=== PATIENT | male | born 1975 | race Caucasian/White ===

== ENCOUNTER 2020-03-02 08:30 | Outpatient (RCR) | payer BC, SELFPAY ==
--- NOTE | 2020-01-14 15:16 | PTOPEVAL ---
Thank you for referring Kaiden Amaya JrLata to [facility].? The patient is scheduled to be seen for therapy?2 x/week for 4 weeks. Please review, sign, date and return this plan of care RADHA. I agree with and certify that the following plan of care is medically necessary. Referring Physician Date Attending Provider: Guanako Akins MD Referring Provider: *PT Outpatient Evaluation Start: 01/14/20 13:57 Freq: Status: Active Protocol: Document 01/14/20 13:59 ROMY (Rec: 01/14/20 14:52 ROMY [email or web address]) Therapy Assessment Status Assessment Status Assessment Status Evaluation Outpatient Past Medical History Past Medical History No Past Medical/Surgical History Patient/Family Denies Significant Past Medical/ Surgical History Evaluation Information Problem Diagnosis right elbow pain Onset ~ 1 year Cause unknown Additional Evaluation Detail anti-inflammatory medication: no changes with use of medication. 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 Reports increased pain with lifting weights of 30-35#. He noted increased pain after spliting wood for a few hours. He reports intermittent numbness/tingling into right palm. Reports any activity that causes strain on the elbow increases the pain (ie lifting any object, holding kids). States pain is on the medial/ posterior aspect of elbow. Denies pain with sleeping. Denies pain with use of computer or phone. States something feels off with the elbow. He lifts weights 3x/wk, then runs or bikes. He performs minimal stretching. Pain Assessment Timing of Pain Assessment Timing of Pain Assessment Assessment Pain Scale Pain Scale Used Numeric (1 - 10) Self Report Pain Assessment Right Elbow(s) Reported Pain Level 1 Pain Description Numbness,Radiating,Sharp,
--- NOTE | 2020-02-11 12:29 | PTOPEVAL ---
Thank you for referring Kaiden Amaya JrLata to [facility].? The patient is scheduled to be seen for therapy? 2 x/week for 3 weeks. Please review, sign, date and return this plan of care RADHA. I agree with and certify that the following plan of care is medically necessary. Referring Physician Date Attending Provider: Guanako Akins MD *PT Outpatient Evaluation Start: 01/14/20 13:57 Freq: Status: Active Protocol: Document 02/11/20 09:02 ROMY (Rec: 02/11/20 10:00 ROMY [email or web address]) Therapy Assessment Status Assessment Status Assessment Status Re-evaluation Outpatient Past Medical History Past Medical History No Past Medical/Surgical History Patient/Family Denies Significant Past Medical/ Surgical History Evaluation Information Problem Diagnosis right elbow pain Onset ~ 1 year Cause unknown Additional Evaluation Detail anti-inflammatory medication: no changes with use of medication. 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 Subjective Information He will have right elbow and Query Text:As Reported By Patient/ arm pain with any activity Family that requires use of the right UE for pushing, pulling or lifting resistance. He reports intermittent numbness /tingling into right palm. He will have tingling in the wrist after some of his resistance activities. He has right elbow pain with throwing motion with increased force. Pain is isolated to medical epicondyle with the forceful throwing motion. Denies difficulty sleeping due to pain. Denies pain with use of computer or phone, leaning onto elbow. States pain is isolated to medial epicondyle elbow region to slightly superior to condyle region. States something feels off with the elbow. He has been lifts
--- NOTE | 2020-03-02 10:07 | PTOPEVAL ---
Thank you for referring Kaiden Amaya Jr. to [facility].? Pt has been seen for 14 therapy visits to address right UE symptoms and pain. Limited progress with symptoms, tolerance with activities and progression towards therapy goals with therapy. DC skilled therapy services at this time with goals partially met. Please review, sign, date and return this plan of care RADHA. I agree with and certify that the following plan of care is medically necessary. Referring Physician Date Admitting Provider: Attending Provider: Guanako Akins MD Referring Provider: *PT Outpatient Evaluation Start: 01/14/20 13:57 Freq: Status: Active Protocol: Document 03/02/20 08:34 CAP (Rec: 03/02/20 09:00 CAP [email or web address]) Therapy Assessment Status Assessment Status Assessment Status Re-evaluation/Discharge Note Evaluation Information Problem Diagnosis right elbow pain Onset ~ 1 year Cause unknown Additional Evaluation Detail anti-inflammatory medication: no changes with use of medication. 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 Subjective Information He cont to have pain for the Query Text:As Reported By Patient/ right elbow and arm with any Family activity that requires use of the right UE for pushing, pulling or lifting resistance. REports the symptoms stay in the medial elbow region with the resistance activites. He reports improved numbness/ tingling into right palm. He continues to have right elbow pain with throwing motion with increased force. Denies difficulty sleeping due to pain. Denies pain with use of computer or phone, leaning onto elbow or prolonged elbow flexion position. He cont to perform cardio activities without restrictions. He is performing his HEP without changes in symptoms. Pain Assessment Timing of Pain Assessment Timing of Pain Assessment Re-assessment Pain Scale Pain Scale Used Numeric (1 - 10) Self Report Pain Assessment
== END 2020-03-02 11:30 | disposition home or self-care (01) ==
LOC: ANHPT 08:30
PROVIDERS: PCP Family Medicine; Visit Provider Orthopaedic Surgery
DX: M25.521 Pain in right elbow (principal)
CPT/HCPCS: 97035; 97110; 97112; 97140; 97161

== ENCOUNTER 2020-03-11 08:45 | Outpatient (CLI) | payer BC, SELFPAY ==
--- NOTE | ~2020-03-11 | MR_ITS ---
EXAMINATION: MR elbow RT wo con DATE: 03/11/2020 10:26 INDICATION: Medial right elbow pain TECHNIQUE: Magnetic resonance imaging (MRI) of the right elbow was performed without intravenous cont rast. Sequences included coronal, axial, and sagittal PD-weighted FS FSE and coronal, axial, and sagi ttal PD-weighted FSE. COMPARISON: None FINDINGS: Osseous/other: Normal alignment. Normal marrow signal with no marrow edema, fracture, osteochondral lesion or patho logic marrow replacing process. Mild nonuniform joint space narrowing at the radiocapitellar articula tion with partial thickness cartilage loss at the radial head. Tendons: Triceps, biceps brachii and brachialis tendons are normal. Mild increased signal in the proximal com mon flexor tendon wad without discrete tear. Mild edema in the surrounding subcutaneous fat. Findings would be consistent with medial epicondylitis with mild tendinopathy. The common extensor tendon wad is normal. Ligaments: The medial and lateral collateral ligament complexes are normal. Cubital tunnel: Cubital tunnel is unremarkable with normal signal and caliber of the ulnar nerve. Fluid: Physiologic amount of fluid the elbow joint. IMPRESSION: 1. Medial epicondylitis with mild tendinopathy without discrete tear of the common flexor tendon wad. 2. Mild osteoarthritis at the right elbow. Reviewed, dictated and finalized at location A. STANT SECRETARY IMPRESSION: 1. Medial epicondylitis with mild tendinopathy without discrete tear of the com mon flexor tendon wad. 2. Mild osteoarthritis at the right elbow.
== END 2020-03-11 08:46 | disposition home or self-care (01) ==
PROVIDERS: PCP Family Medicine; Visit Provider Orthopaedic Surgery
DX: M19.021 Primary osteoarthritis, right elbow (principal); M77.01 Medial epicondylitis, right elbow
CPT/HCPCS: 73221

== ENCOUNTER 2022-02-24 10:56 | Outpatient (CLI) | payer BC, SELFPAY | END 2022-02-24 10:57 | disposition home or self-care (01) | LOC: ANHAUDIO 10:58 | PROVIDERS: PCP Family Medicine; Visit Provider Physician Assistant | DX: H91.90 Unspecified hearing loss, unspecified ear (principal) | CPT/HCPCS: 92557; 92567 ==

== ENCOUNTER 2022-03-07 06:52 | Outpatient (CLI) | payer BC, SELFPAY ==
[2022-03-16 19:26] LABS: Parathyroid Hormone Related Pr 11 pg/mL (11-20)
== END 2022-03-07 06:53 | disposition home or self-care (01) ==
PROVIDERS: PCP Family Medicine; Visit Provider Physician Assistant
DX: E83.52 Hypercalcemia (principal)
CPT/HCPCS: 36415; 83519

== ENCOUNTER 2022-09-21 07:13 | Outpatient (CLI) | payer BC, SELFPAY ==
[2022-09-21 08:08] LABS: Alanine Aminotransferase 37 U/L (6-50); Albumin Level 4.2 g/dL (3.5-5.1); Alkaline Phosphatase 39 U/L (38-126); Anion Gap 2 mmol/L (8-16); Aspartate Amino Transferase 37 U/L (17-59); Bilirubin,Total 0.8 mg/dL (0.2-1.3); Blood Urea Nitrogen 19 mg/dL (9-20); Calcium 9.9 mg/dL (8.4-10.2); Carbon Dioxide 33 mmol/L (22-30); Chloride 105 mmol/L (98-107); Cholesterol 192 mg/dL (0-200); Estimated Glomerular Filt Rate > 60; Glucose 101 mg/dL (65-110); HDL Direct 46 mg/dL; Potassium 4.6 mmol/L (3.4-5.0); Sodium 140 mmol/L (137-145); Triglycerides 115 mg/dL (<150)
[2022-09-21 08:20] LABS: LDL Cholesterol Direct 111 mg/dL
== END 2022-09-21 07:14 | disposition home or self-care (01) ==
LOC: ANHLAB 07:15
PROVIDERS: PCP Family Medicine; Visit Provider Physician Assistant
DX: Z13.220 Encounter for screening for lipoid disorders (principal); Z13.1 Encounter for screening for diabetes mellitus
CPT/HCPCS: 36415; 80053; 80061

== ENCOUNTER 2023-03-15 07:06 | Outpatient (CLI) | payer BC, SELFPAY ==
[2023-03-15 08:30] LABS: Appearance Urine Clear (Clear); Bilirubin Urine Negative (Negative); Blood Urine Negative (Negative); Color Urine Yellow (Yellow); Glucose Urine UA Negative (Negative); Ketones Urine Negative (Negative); Leukocyte Esterase Ur Negative LEU/UL (Negative); Nitrate Urine Negative (Negative); Protein Urine Negative (Negative); Specific Grav Ur 1.016 (1.001-1.035); Urobilinogen Urine 0.2 mg/dL (<2.0)
[2023-03-15 08:57] LABS: Add Urine Microscopic? NO
[2023-03-15 10:01] LABS: Alanine Aminotransferase 51 U/L (6-50); Albumin Level 4.1 g/dL (3.5-5.1); Alkaline Phosphatase 43 U/L (38-126); Anion Gap 2 mmol/L (8-16); Aspartate Amino Transferase 45 U/L (17-59); Bilirubin,Total 0.8 mg/dL (0.2-1.3); Blood Urea Nitrogen 17 mg/dL (9-20); Calcium 9.8 mg/dL (8.4-10.2); Carbon Dioxide 31 mmol/L (22-30); Chloride 106 mmol/L (98-107); Cholesterol 195 mg/dL (0-200); Estimated Glomerular Filt Rate > 60; Glucose 92 mg/dL (65-110); HDL Direct 42 mg/dL; Potassium 4.4 mmol/L (3.4-5.0); Sodium 139 mmol/L (137-145); Triglycerides 82 mg/dL (<150)
[2023-03-15 10:12] LABS: LDL Cholesterol Direct 118 mg/dL
[2023-03-15 10:35] LABS: Prostate Specific Antigen 0.7 ng/mL (< OR = 4.0)
== END 2023-03-15 07:07 | disposition home or self-care (01) ==
LOC: ANHLAB 07:07
PROVIDERS: PCP Family Medicine; Visit Provider Physician Assistant
DX: Z13.220 Encounter for screening for lipoid disorders (principal); Z12.5 Encounter for screening for malignant neoplasm of prostate; R39.15 Urgency of urination; Z13.1 Encounter for screening for diabetes mellitus
CPT/HCPCS: 36415; 80053; 80061; 81003; 84153; G0103

== ENCOUNTER 2023-10-04 07:26 | Outpatient (CLI) | payer BC, SELFPAY ==
[2023-10-04 08:19] LABS: Alanine Aminotransferase 51 U/L (6-50); Albumin Level 4.4 g/dL (3.5-5.1); Alkaline Phosphatase 49 U/L (38-126); Anion Gap 3 mmol/L (4-12); Aspartate Amino Transferase 38 U/L (17-59); Bilirubin,Total 0.8 mg/dL (0.2-1.3); Blood Urea Nitrogen 19 mg/dL (9-20); Calcium 10.3 mg/dL (8.4-10.2); Carbon Dioxide 31 mmol/L (22-30); Chloride 105 mmol/L (98-107); Cholesterol 255 mg/dL (0-200); Estimated Glomerular Filt Rate > 60; Glucose 104 mg/dL (65-110); HDL Direct 53 mg/dL; Sodium 139 mmol/L (137-145); Triglycerides 149 mg/dL (<150)
[2023-10-04 08:30] LABS: LDL Cholesterol Direct 157 mg/dL
== END 2023-10-04 07:27 | disposition home or self-care (01) ==
LOC: ANHLAB 07:27
PROVIDERS: PCP Family Medicine; Visit Provider Physician Assistant Medical
DX: Z00.00 Encounter for general adult medical examination without abnormal findings (principal); E78.2 Mixed hyperlipidemia
CPT/HCPCS: 36415; 80053; 80061

== ENCOUNTER 2024-04-02 07:27 | Outpatient (CLI) | payer BC, SELFPAY ==
[2024-04-02 08:11] LABS: Alanine Aminotransferase 80 U/L (6-50); Alkaline Phosphatase 49 U/L (38-126); Anion Gap 2 mmol/L (4-12); Aspartate Amino Transferase 53 U/L (17-59); Bilirubin,Total 0.6 mg/dL (0.2-1.3); Blood Urea Nitrogen 20 mg/dL (9-20); Calcium 9.4 mg/dL (8.4-10.2); Carbon Dioxide 29 mmol/L (22-30); Chloride 109 mmol/L (98-107); Cholesterol 185 mg/dL (0-200); Estimated Glomerular Filt Rate > 60; Glucose 105 mg/dL (65-110); HDL Direct 52 mg/dL; Potassium 4.3 mmol/L (3.4-5.0); Sodium 140 mmol/L (137-145); Triglycerides 87 mg/dL (<150)
[2024-04-02 08:22] LABS: LDL Cholesterol Direct 96 mg/dL
[2024-04-02 08:36] LABS: Prostate Specific Antigen 0.6 ng/mL (< OR = 4.0)
== END 2024-04-02 07:28 | disposition home or self-care (01) ==
LOC: ANHLAB 07:28
PROVIDERS: PCP Family Medicine; Visit Provider Student in an Organized Health Care Education/Training Program
DX: Z12.5 Encounter for screening for malignant neoplasm of prostate (principal); E78.5 Hyperlipidemia, unspecified
CPT/HCPCS: 36415; 80053; 80061; 84153; G0103

== ENCOUNTER 2024-10-01 07:12 | Outpatient (CLI) | payer BC, SELFPAY ==
--- OUTSIDE RECORDS SUMMARY | 2024-10-01 07:15 | XMS_ITS | Continuity of Care Document ---
Author Organization [facility] Address [address] [place] [address] Phone Care Team Providers Care [employer] Travel Counselor Name Role Phone Padmaja Narendra HEDRICK Unavailable Unavailable Procedures Procedure Date Contact Lens Check Cntct Lens Hydrophilic Toric Or Prism Ba llast Eye Exam & Treatment Refraction Contact Lens Assessment Optomap Contact Lens Assessment Eye Exam & Treatment Refraction Cntct Lens Hydrophilic Toric Or Prism Ba llast Contact Lens Hydrophilic, Spherical Delivery Fee/S&H Optomap CL Replacement - Octavio Fr Rep [facility] Refraction Office/outpatient Visit, [facility] Corneal Topography Optomap Contact Lens Fitting Advance Directives Directive Yes / No Effective Date File Name No Information Encounters Encounter Description Practice Location Reason(s) For Visit Diagnoses Date Provider Providers Copied on Encounter [facility], [address] [place] [address] [address], [place], [place], [id number], [place] tel:[phone] [facility] [place] No Information Padmaja FLORIDALMA Mackey. [address], [address], [place], [address], . tel:[phone] Referring Provider: Narendra Padmaja [place], [address], [place], [address]. tel:[phone] [facility], [address], [place], [place], [id number], [place] tel:[phone] [facility] No Information Padmaja OD Narendra. [address], [address], [place], [address], [place]. tel:[phone] Referring Provider: Bimal Ma OD P, [address], [place], [address] . tel:[phone] [facility], [address], [place], [place], [id number], [place] tel:[phone] [facility] No Information Anil Wallis. [address] [place], [place], [id number], [place]. tel:[phone] Referring Provider: Bimal Ma OD P, [address] [place], [address] . tel:[phone] [facility], [address], [place], [place], [id number], [place] tel:[phone] [facility] [place] No Information Anil Wallis. [address] [place], [place], [id number], [place]. tel:[phone] Referring Provider: Bimal Ma OD P, [address] [place], [address] . tel:[phone] [facility], [address], [place], [place], [id number], [place] tel:[phone] [facility] No Information Anil Wallis. [address], [place], [place], [address], [place]. tel:[phone] Office/outpat ient Visit, [facility], [address], [place], [place], [id number], [place] tel:[phone] [facility] No Information Anil Wallis. [address] [place], [place], [id number], [place]. tel:[phone] Family History Family Member Type Diagnosis Age At Onset No Information Payers Payer name Insurance type Covered green party ID Yousif cohen(s) [facility] [id number] Social History Type Description Quantity Date Captured Comments Sex Male Smoking Status No Information Chief Complaint And Reason For Visit No Information Reason For Referral Reason For Referral No Information History Of Present Illness Encounter Date Complaint History Of Prese nt Illness No Information Functional Status Date Functional Assessmen t No Information Instructions Date Instruction Additional Infor mation No Information Assessments Type Assessment Date No Information Patient Care Teams Name Effective Dates (start - stop) Status Members No Information
[2024-10-01 07:47] LABS: Basophils Percent Auto 0.8 % (0.2-1.2); Eosinophils Absolute Auto 0.2 K/mm3 (0-0.3); Eosinophils Percent Auto 3.6 % (0-4.4); Hematocrit 46.6 % (42.0-52.0); Hemoglobin 15.7 g/dL (14.0-18.0); Immature Granulocyte Absolute 0.02 K/mm3 (0.00-0.031); Immature Granulocyte Percent A 0.4 % (0-0.5); Lymphocytes Absolute Auto 1.54 K/mm3 (0.9-3.2); Mean Corpuscular HGB Conc 33.7 g/dl (32-36); Mean Corpuscular Hemoglobin 29.7 pg (26-34); Mean Corpuscular Volume 88.1 fl (80-100); Mean Platelet Volume 11.3 fl (7.4-10.4); Monocytes Absolute Auto 0.4 K/mm3 (0.1-0.6); Monocytes Percent Auto 8.9 % (2.6-8.5); Neutrophils Absolute Auto 2.8 K/mm3 (1.3-6.7); Neutrophils Percent Auto 55.3 % (45.5-73.1); Platelet Count Result 252 k/mm3 (150-375); Red Blood Count 5.29 M/mm3 (4.6-6.20); Red Cell Distribution Width 12.3 % (11.5-14.5)
[2024-10-01 08:06] LABS: Alanine Aminotransferase 72 U/L (6-50); Albumin Level 4.3 g/dL (3.5-5.1); Alkaline Phosphatase 50 U/L (38-126); Anion Gap 7 mmol/L (4-12); Aspartate Amino Transferase 49 U/L (17-59); Bilirubin,Total 0.8 mg/dL (0.2-1.3); Blood Urea Nitrogen 19 mg/dL (9-20); Carbon Dioxide 25 mmol/L (22-30); Chloride 107 mmol/L (98-107); Cholesterol 219 mg/dL (0-200); Estimated Glomerular Filt Rate > 60; Glucose 110 mg/dL (65-110); HDL Direct 45 mg/dL; Potassium 4.4 mmol/L (3.4-5.0); Sodium 139 mmol/L (137-145); Triglycerides 129 mg/dL (<150)
[2024-10-01 08:18] LABS: LDL Cholesterol Direct 120 mg/dL
== END 2024-10-01 07:13 | disposition home or self-care (01) ==
LOC: ANHLAB 07:13
PROVIDERS: PCP Family Medicine; Visit Provider Student in an Organized Health Care Education/Training Program
DX: Z00.00 Encounter for general adult medical examination without abnormal findings (principal); E78.5 Hyperlipidemia, unspecified; F41.9 Anxiety disorder, unspecified; R53.83 Other fatigue
CPT/HCPCS: 36415; 80053; 80061; 85025

== ENCOUNTER 2025-01-21 10:46 | Outpatient (CLI) | payer BC, SELFPAY | END 2025-01-21 10:47 | disposition home or self-care (01) | LOC: ANHLAB 10:48 | PROVIDERS: PCP Family Medicine; Visit Provider Allergy & Immunology | DX: J30.2 Other seasonal allergic rhinitis (principal) | CPT/HCPCS: 86003 ==

== ENCOUNTER 2025-02-20 07:04 | Outpatient (CLI) | payer BC, SELFPAY ==
--- OUTSIDE RECORDS SUMMARY | 2025-02-20 07:08 | XMS_ITS | Clinical Summary ---
Author Organization [facility] Address [address] [place] [address] Care Team Providers Care Cigarette Maker Name Role Phone Unavailable Primary Care Provider Unavailabl e Social History Tobacco Use Types Packs/Day Years Used Date Smoking Tobacco: Never Assessed Sex and Gender Information Value Date Recorded Sex Assigned at Not on file Legal Sex Male 4:53 PM CDT Gender Identity Not on file Sexual Orientation Not on file Plan of Treatment Health Maintenance Due Date Last Done Comments Colorectal Cancer Screening Colonoscopy (10 Years) 1976 Annual Physical 12/23/1979 Hepatitis C 1994 DTaP, Tdap and Td Vaccines ( 1 - Tdap) 12/23/1995 Hepatitis B Vaccines (1 of 3 - 19+ 3-dose series) 12/23/1995 COVID-19 Vaccine ( - 2023-2 5 season) 2025 Influenza Adult (#1) 2025 Meningococcal B Vaccine Aged Out No l onger eligible based on patient's age to complete this topic Meningococcal Vaccine Aged Out No ophelia hien eligible based on patient's age to complete this topic Pneumococcal Vaccine: Pediat rics (0 to 5 Years) and At-Risk Patients (6 to 49 Years) Aged Out No longer eligible b ased on patient's age to complete this topic RSV Immunizations Under 20 Months Aged Out No longer eligible based on patient's age to complete this topic
[2025-02-20 08:00] LABS: Hematocrit 45.5 % (42.0-52.0); Hemoglobin 15.5 g/dL (14.0-18.0); Immature Granulocyte Percent A 0.2 % (0-0.5); Lymphocytes Absolute Auto 1.57 K/mm3 (0.9-3.2); Mean Corpuscular HGB Conc 34.1 g/dl (32-36); Mean Corpuscular Hemoglobin 29.8 pg (26-34); Mean Corpuscular Volume 87.5 fl (80-100); Nucleated Red Blood Cells Absolute Auto 0.000 K/mm3 (0.0-0.012); Nucleated Red Blood Cells Perc 0.0 % (0.0-0.2); Platelet Count Result 258 k/mm3 (150-375); Red Blood Count 5.20 M/mm3 (4.6-6.20); White Blood Count 4.9 K/mm3 (4.5-10.0)
[2025-02-20 08:11] LABS: Hemoglobin A1C 5.0 % (<5.7)
[2025-02-20 08:20] LABS: Alanine Aminotransferase 54 U/L (6-50); Albumin Level 4.1 g/dL (3.5-5.1); Alkaline Phosphatase 48 U/L (38-126); Anion Gap 4 mmol/L (4-12); Aspartate Amino Transferase 39 U/L (17-59); Bilirubin,Total 1.2 mg/dL (0.2-1.3); Blood Urea Nitrogen 18 mg/dL (9-20); Calcium 9.7 mg/dL (8.4-10.2); Carbon Dioxide 27 mmol/L (22-30); Chloride 106 mmol/L (98-107); Cholesterol 193 mg/dL (0-200); Estimated Glomerular Filt Rate > 60; Glucose 103 mg/dL (65-110); HDL Direct 43 mg/dL; Potassium 4.4 mmol/L (3.4-5.0); Sodium 137 mmol/L (137-145); Total Protein 6.7 g/dL (6.3-8.2); Triglycerides 117 mg/dL (<150)
[2025-02-20 08:56] LABS: Thyroid Stimulating Hormone 1.540 uIU/mL (0.465-4.680)
[2025-02-20 09:47] LABS: Free T4 Free Thyroxine 1.25 ng/dL (0.78-2.19)
== END 2025-02-20 07:05 | disposition home or self-care (01) ==
LOC: ANHLAB 07:05
PROVIDERS: PCP Family Medicine Adolescent Medicine; Visit Provider Student in an Organized Health Care Education/Training Program
DX: Z13.1 Encounter for screening for diabetes mellitus (principal); F41.9 Anxiety disorder, unspecified; E78.5 Hyperlipidemia, unspecified; R53.83 Other fatigue; R74.8 Abnormal levels of other serum enzymes
CPT/HCPCS: 36415; 80053; 80061; 83036; 84439; 84443; 85025